=== PATIENT | male | born 2000 | race Caucasian/White ===

== ENCOUNTER 2019-02-17 07:41 | Outpatient (CLI) | payer MEDICAID, SELFPAY ==
[2019-02-17 09:25] LABS: ALT 24 U/L (12-78); AST 24 U/L (15-37); Albumin 4.2 g/dL (3.4-5.0); Alkaline Phosphatase 94 U/L (46-116); Anion Gap 8.4 mmol/L (3-11); BUN 22 mg/dL (7-18); Bilirubin, Total 0.6 mg/dL (0.2-1.0); CO2 28.6 mmol/L (21.0-32.0); CREATININE 0.91 mg/dL (0.70-1.30); Calcium 9.2 mg/dL (8.5-10.1); Chloride 103 mmol/L (98-107); Cholesterol 210 mg/dL (50-200); Glucose 86 mg/dL (70-100); HDL Cholesterol 55 mg/dL (40-60); LDL CHOLESTEROL 125 mg/dL (<100); Potassium 4.5 mmol/L (3.5-5.1); Sodium 140 mmol/L (136-145); Total Protein 7.6 g/dL (6.4-8.2); Triglyceride 133 mg/dL (30-150)
== END 2019-02-17 08:01 ==
PROVIDERS: PCP Nurse Practitioner Family; Visit Provider Nurse Practitioner Family
DX: F20.9 Schizophrenia, unspecified (principal); Z79.899 Other long term (current) drug therapy
CPT/HCPCS: 36415; 80053; 80061; 83721

== ENCOUNTER 2019-03-15 07:43 | Emergency (ER) | payer MEDICAID, SELFPAY ==
[2019-03-15] MEDS: Ibuprofen 800 MG TAB PO (07:45)
[2019-03-15 07:48] VITALS: BP 126/68; PULSE 79; RESP 16; TEMP 37; O2SAT 96
[2019-03-15] MEDS: Acetaminophen 500 MG TAB 1000 MG PO (07:50)
--- NOTE | 2019-03-15 07:50 | DI.RAD_ITS ---
SYMPTOM/DIAGNOSIS: FELL, SPRAIN, PAIN LEFT ANKLE: Three views were obtained. The ankle mortise appears well maintained. No fracture is seen.
--- NOTE | 2019-03-15 07:55 | ED.GENADUL_ITS ---
Discharge Plan Disposition Condition: Good Discharge Details Chief Complaint: Orthopedic Clinical Impression: Left ankle sprain Primary Care Provider: Roslyn Velasco ED Provider: Vernon Martin Home Meds and New Rx's Prescriptions: No Action paroxetine HCl [Paxil] 20 MG tablet 20 mg PO DAILY RF: 0 benztropine 0.5 mg Tablet 0.5 mg PO DAILY RF: 0 risperidone [Risperdal] 1 mg Tablet 1 mg PO DAILY RF: 0 Discharge Instructions Instructions: Ankle Sprain (ED) Additional Instructions: No large fracture is seen on your x-ray. Please use the splint as directed. Please take Tylenol, Motrin and use ice frequently as needed for the pain. If your symptoms do not improve with conservative management in the next 1-2 weeks may require further evaluation by an inbound ingredient logistics specialist or your family doctor peer if you notice any worsening of your symptoms, or any new symptoms such as vomiting, diarrhea, fever, chills, shortness of breath, chest pain, numbness, weakness, or fainting , please return immediately to the emergency department for reevaluation. Please follow up with your primary care provider as soon as possible for reassessment and reevaluation. As always, it was a pleasure participating in your medical care today. Referrals: Roslyn Velasco, KARI [Primary Care Provider] - Medical Decision Making This is a 18-year-old male who presents for his signs and symptoms concerning for an ankle sprain. Last night he was walking, and stepped on a dumbbell bar, leading to the inversion of his ankle with subsequent pain in the lateral aspect. Exam demonstrates reproducible mild tenderness at the distal aspect of the lateral malleoli, mild swelling and effusion there. He is able to ambulate with a mild limp. Neurovascular exam is otherwise intact, range of motion is normal, strength is normal for all movement of the ankle. We will give NSAIDs, and get an x-ray to evaluate for acute fracture. We will put the patient in a ankle splint. 8:16 AM X-ray reveals no significant fracture of the distal tibia or fibula, ankle mortise and joint space appears intact. Questionable small avulsion of the distal aspect of the fibula. Not of severe clinical significance. Patient's pain is well controlled. No evidence of ankle instability. We will give a splint, crutches, and recommend continued RICE. I have extensively reviewed the treatment plan and discharge instructions with the patient and their family. I have addressed all patient concerns at this time. The patient and family was made aware of what symptoms to monitor for that would warrant a return to the emergency department. Discussed the plan with the patient and family, they demonstrate verbal understanding and agreement with our assessment and plan at this time. HPI General Date/Time Provider Initiated Documentation: 03/15/19 07:47 . HPI Narrative: This is a 18-year-old male who presents for evaluation of left ankle sprain. Patient states that last night he was walking and stepped on a weight lifting dumbbell bar, leading to inversion of his ankle. He did hear a pop. He has had pain with ambulation since then. Pain is located on the lateral aspect of his ankle. Worse with movement, improved by nothing. He is taken no NSAIDs. He denies any numbness tingling or weakness or any other modifying factors. He denies any previous orthopedic surgeries. He denies any IV or illicit drug use or pertinent family history. Related Data Home Medications Medication Instructions Recorded Confirmed paroxetine HCl [Paxil] 20 mg PO DAILY tab-cap 07/15/18 03/15/19 benztropine 0.5 mg PO DAILY 03/15/19 03/15/19 risperidone [Risperdal] 1 mg PO DAILY 03/15/19 03/15/19 Allergies Allergy/AdvReac Type Severity Reaction Status Date / Time No Known Allergies Allergy Unverified 03/15/19 07:51 General Stated Complaint: Orthopedic BARBARA: 4 Review of Systems Review of Systems All systems reviewed & are unremarkable except as noted in HPI and below PFSH Medical History Mental health disorder Surgical History Appendectomy Family History Father Essential hypertension Heart disease Myocardial infarction Grandfather Diabetes Essential hypertension Heart disease Hyperlipidemia Myocardial infarction Grandmother Essential hypertension Hyperlipidemia Mother Mental disorder Paternal Aunt Alcohol abuse Brother No problems noted. Brother No problems noted. Sister No problems noted. Social History Smoking/Tobacco Use Status: Never Do you feel safe in your relationship?: Yes Exam Narrative Exam Narrative: 1.Const: Well-nourished, Well-developed, appearing stated age 2.Eyes: PERRL, no conjunctival injection, and symmetrical lids. 3.ENT: Atraumatic external nose and ears. Moist MM. Neck: Symmetric, trachea midline, No thyromegaly. 4.CVS: +S1/S2, No murmurs or gallops. Peripheral pulses 2+ and equal in all extremities. Brisk capillary refill in all extremities. 5.RESP: Unlabored respiratory effort. Clear to auscultation bilaterally. No wheezes rales or rhonchi 6.GI: Soft, Nontender/Nondistended, No hepatosplenomegaly. No guarding or rebound. 7.MSK: Normocephalic/Atraumatic, Extremities w/o deformity. No cyanosis or clubbing, Normal movement of all extremities. Left ankle demonstrates normal strength for plantar flexion dorsiflexion, eversion and inversion. Minimal swelling at the base of the lateral malleoli, reproducible tenderness in that area, including the ATF location. Mild effusion. Dorsalis pedis and posterior tibial +2, capillary refill brisk, sensation intact throughout. Normal movement of all toes. No evidence of pain in the medina, or knee. Normal range of motion for all extremities otherwise. 8.Skin: Warm, Dry. No rashes or lesions. 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 Sensation grossly intact, no focal neurologic deficits. 10.Psych: (AAO) x3. Appropriate mood and affect Course Vital Signs Temperature 37 C 03/15/19 07:48 Pulse 79 03/15/19 07:48 Respiratory Rate 16 03/15/19 07:48 Blood Pressure 126/68 03/15/19 07:48 Pulse Oximetry 96 03/15/19 07:48 Temperature 37 C 03/15/19 07:48 Temperature Source Skin 03/15/19 07:48 Pulse 79 03/15/19 07:48 Respiratory Rate 16 03/15/19 07:48 Respiratory Effort Non-Labored 03/15/19 07:48 Blood Pressure 126/68 03/15/19 07:48 Blood Pressure Position Supine 03/15/19 07:48 Pulse Oximetry 96 03/15/19 07:48 Oxygen Delivery Method Room Air 03/15/19 07:48 Oxygen Flow Rate 0 03/15/19 07:48 Pain Level 0 03/15/19 07:48
== END 2019-03-15 08:50 ==
PROVIDERS: Emergency Provider Student in an Organized Health Care Education/Training Program; PCP Nurse Practitioner Family
DX: S93.402A Sprain of unspecified ligament of left ankle, initial encounter (principal); X50.9XXA Other and unspecified overexertion or strenuous movements or postures, initial encounter
CPT/HCPCS: 29515; 99283; 73610; E0114; L1902

== ENCOUNTER 2019-09-22 07:34 | Outpatient (CLI) | payer MEDICAID, SELFPAY ==
[2019-09-22 09:09] LABS: ALT 32 U/L (16-63); AST 20 U/L (15-37); Albumin 4.3 g/dL (3.4-5.0); Alkaline Phosphatase 112 U/L (46-116); Anion Gap 8.3 mmol/L (3-11); BUN 21 mg/dL (7-18); Bilirubin, Total 0.7 mg/dL (0.2-1.0); CO2 28.7 mmol/L (21.0-32.0); CREATININE 0.95 mg/dL (0.70-1.30); Calcium 8.9 mg/dL (8.5-10.1); Calculated LDL 142 mg/dL; Chloride 104 mmol/L (98-107); Cholesterol 215 mg/dL (50-200); Glucose 96 mg/dL (70-100); HDL Cholesterol 47 mg/dL (40-60); Potassium 4.3 mmol/L (3.5-5.1); Sodium 141 mmol/L (136-145); TSH 1.48 uIU/mL (0.36-3.74); Total Protein 7.8 g/dL (6.4-8.2); Triglyceride 133 mg/dL (30-150)
[2019-09-24 15:46] LABS: 25-Hydroxy D Total 28 ng/mL; 25-Hydroxy D2 <4.0 ng/mL; 25-Hydroxy D3 28 ng/mL
== END 2019-09-22 07:54 ==
PROVIDERS: PCP Nurse Practitioner Family; Visit Provider Nurse Practitioner Family
DX: F20.9 Schizophrenia, unspecified (principal); Z79.899 Other long term (current) drug therapy; E55.9 Vitamin D deficiency, unspecified; R63.5 Abnormal weight gain
CPT/HCPCS: 36415; 80053; 80061; 82306; 84443

== ENCOUNTER 2020-06-30 10:51 | Day surgery (SDC) | payer MEDICAID, SELFPAY ==
--- NOTE | 2020-06-28 11:37 | DSU.FORM ---
Surgical office called Patient need prep script called to [facility]. Spoke with Daniella 06/28/20
[2020-06-30 11:10] VITALS: BP 122/80; PULSE 83; RESP 18; TEMP 37; O2SAT 96
[2020-06-30] MEDS: Lactated Ringers 1,000 ML 80 ML IV (11:56)
--- NOTE | 2020-06-30 12:02 | NUR.NOTE ---
Nursing Note: Pt. had one bout of small clear emesis during IV access. Pt. stated he was 'fine', looked away; RN proceeded. Pt. then became pale, clammy, with eyes rolling back into his head. RN stopped procedure, withdrawing IV, holding pressure. RN paged for assistance. Pt. had emesis and was assisted into bed in supine position. Anesthesia made aware. Anesthesia proceeded with IV access successfully.
--- NOTE | 2020-06-30 12:38 | W.PM.DSUDISC ---
Discharge Plan Disposition Patient Disposition: HOME Condition: Good Discharge Details Reason For Visit: Colonoscopy Attending Provider: Trisha Carreon Primary Care Provider: Roslyn Velasco Home Meds and New Rx's Prescriptions: Continued aripiprazole [Abilify] 5 mg tablet 5 mg PO HS RF: 0 hydroxyzine HCl 25 mg tablet 25 mg PO BID PRNRF: 0 Discontinued bisacodyl [Dulcolax (bisacodyl)] 5 mg tablet,delayed release (DR/EC) 5 mg PO ONCE Qty: 4 RF: 0 polyethylene glycol 3350 17 gram/dose powder 17 g PO ONCE Qty: 238 RF: 0 Discharge Instructions Additional Instructions: Findings: Your colonoscopy was normal. Internal hemorrhoids are present, which are the source of bleeding. Make sure to take in 30 grams of fiber daily to help avoid constipation and diarrhea which can worsen hemorrhoids. Benefiber is a good option for a fiber supplement. Follow up: None needed at this time. Please call if you develop: fevers >101.5 Nausea or Vomiting Abdominal pain that is not transient DAY SURGERY UNIT POST COLONOSCOPY INSTRUCTIONS 1. Because there will be medication in your system for the next 24 hours, you may feel a little sleepy. Your coordination will be affected. Therefore: a. Do not drive or operate dangerous equipment for 24 hours. b. Do not drink alcohol beverages for 24 hours (not even beer). c. Plan to go home and rest for the day. 2. Generally there are no restrictions on your activity after a day or so has gone by, but you may feel a bit fatigued for a few days. 3 After you arrive home you may have a light meal and return to a normal diet as you can tolerate it without feeling sick to your stomach. 4. After surgery, you may feel pain or discomfort. This should be only transient, but if it persists please contact your doctor. 5. If there are any questions regarding the findings of your procedure, please feel free to contact your doctor. 6. If you are unable to contact your doctor with a problem, contact the hospital at [phone]. 7. Continue all your regular medications unless directed otherwise. I understand the above instructions and have no questions. Signature of Patient or Responsible Adult Escort Date/Time Name of Responsible Adult Escort Signature of Nurse Date/Time Activity:: Activity as Tolerated Diet:: As Tolerated Discharge Orders Discharge Orders: Discharge Order (Routine); Ordered 06/30/20 Ordered By: Trisha Carreon DS: Diagnosis Discharge Diagnosis (1) Rectal bleeding: Status: Acute
--- NOTE | 2020-06-30 13:26 | W.COLOREPORT ---
Date of service: 06/30/20 Time of Service: 13:26 Colonoscopy Report Date of procedure: 06/30/20 Pre-op diagnosis general: Rectal bleeding Post-op diagnosis procedure note: other (Normal colon, internal hemorrhoids) Procedure: Colonoscopy Surgeon: Trisha Carreon Anesthesia proc note operative: MAC Indications: This patient complains of bright red blood on the toilet paper several times a week. He has alternating diarrhea and constipation. His grandmother had colon cancer. Procedure Description: The patient was placed in the left Zambrano position. Propofol was titrated to sedation. Digital rectal examination revealed no abnormalities. The scope was advanced to the cecum without difficulty. The ileocecal valve and appendiceal orifice were clearly identified. The prep was good. The scope was slowly withdrawn over the course of greater than 6 minutes with no abnormalities seen in the ascending, transverse, descending, sigmoid colon or rectum. Retroflexed view showed moderately prominent internal hemorrhoids. The patient tolerated the procedure well and was stable to recovery. Plan for routine screening colonoscopy per guidelines. He can take a fiber supplement to improve the diarrhea/constipation.
[2020-06-30 13:42] VITALS: BP 123/68
== END 2020-06-30 14:05 | disposition home or self-care (01) ==
PROVIDERS: PCP Nurse Practitioner Family; Visit Provider Surgery
PROC: 0DJD8ZZ Inspection of Lower Intestinal Tract, Via Natural or Artificial Opening Endoscopic (ICD-10-PCS; CPT 45378; principal; 2020-06-30 13:00)
DX: K62.5 Hemorrhage of anus and rectum (principal); R19.8 Other specified symptoms and signs involving the digestive system and abdomen; Z80.0 Family history of malignant neoplasm of digestive organs; K64.8 Other hemorrhoids
CPT/HCPCS: 45378

== ENCOUNTER 2020-10-24 04:14 | Outpatient (CLI) | payer MEDICAID, SELFPAY ==
[2020-10-24 12:21] LABS: Abs Immature Grans 0.05 10^3/uL (0.0-0.06); Absolute Basophil Count 0.03 10^3/uL (0.0-0.2); Absolute Eosinophil Count 0.27 10^3/uL (0.0-0.7); Absolute Lymphocyte Count 3.73 10^3/uL (1.2-3.4); Absolute Monocyte Count 0.94 10^3/uL (0.1-0.8); Absolute Neutrophil Count 6.41 10^3/uL (1.2-6.7); Basophils % 0.3; Eosinophils % 2.4; HCT 44.7 % (40.0-50.0); HGB 15.5 g/dL (13.5-17.5); Immature Grans % 0.4; Lymphocytes % 32.6; MCHC 34.7 % (32.0-36.0); MCV 89.4 fL (80-95); MPV 10.2 fL (8.0-11.0); Monocytes % 8.2; Neutrophils % 56.1; Nucleated RBC 0 %; Platelet Count 331 10^3/uL (130-400); RDW-SD 39.2 fL; WBC 11.43 10^3/uL (4.4-10.8)
[2020-10-24 13:23] LABS: ALT 30 U/L (16-63); AST 18 U/L (15-37); Albumin 4.2 g/dL (3.4-5.0); Alkaline Phosphatase 106 U/L (46-116); Anion Gap 8.9 mmol/L (3-11); BUN 18 mg/dL (7-18); Bilirubin, Total 0.8 mg/dL (0.2-1.0); CO2 27.1 mmol/L (21.0-32.0); CREATININE 0.99 mg/dL (0.70-1.30); Calcium 9.1 mg/dL (8.5-10.1); Calculated LDL 128 mg/dL (<100); Chloride 105 mmol/L (98-107); Cholesterol 200 mg/dL (<200); Glucose 89 mg/dL (74-106); HDL Cholesterol 55 mg/dL (40-60); Potassium 3.7 mmol/L (3.5-5.1); Sodium 141 mmol/L (136-145); TSH (W/Ref FT4) 1.35 uIU/mL (0.36-3.74); Total Protein 7.5 g/dL (6.4-8.2); Triglyceride 88 mg/dL (<150)
[2020-10-25 16:08] LABS: HIV-1/2 Ag & Ab Screen Negative (Negative)
[2020-10-30 15:25] LABS: Hepatitis C Ab w Rflx HCV PCR Negative (Negative)
== END 2020-10-24 04:34 ==
PROVIDERS: PCP Nurse Practitioner Family; Visit Provider Nurse Practitioner Family
DX: R63.5 Abnormal weight gain (principal); E66.9 Obesity, unspecified; Z13.220 Encounter for screening for lipoid disorders; Z11.4 Encounter for screening for human immunodeficiency virus [HIV]; Z11.59 Encounter for screening for other viral diseases; Z51.81 Encounter for therapeutic drug level monitoring
CPT/HCPCS: 36415; 80053; 80061; 86803; 87389; 83036; 84443; 85025

== ENCOUNTER 2023-05-08 03:11 | Outpatient (CLI) | payer MEDICAID, SELFPAY ==
[2023-05-08 12:22] LABS: Abs Immature Grans 0.06 10^3/uL (0.0-0.06); Absolute Basophil Count 0.04 10^3/uL (0.0-0.2); Absolute Monocyte Count 1.28 10^3/uL (0.1-0.8); Basophils % 0.3; Eosinophils % 2.5; HCT 37.8 % (40.0-50.0); HGB 11.3 g/dL (13.5-17.5); Immature Grans % 0.5; Lymphocytes % 28.5; MCH 24.6 pg (27.0-33.0); MCHC 29.9 % (32.0-36.0); MCV 82 fL (80-95); MPV 11.2 fL (8.0-11.0); Monocytes % 10.6; Neutrophils % 57.6; Platelet Count 429 10^3/uL (130-400); RDW 15.4 % (11.8-14.1); RDW-SD 46.2 fL; WBC 12.05 10^3/uL (4.4-10.8)
[2023-05-08 12:23] LABS: Absolute Lymphocyte Count 3.43 10^3/uL (1.2-3.4); Absolute Neutrophil Count 6.94 10^3/uL (1.2-6.7)
[2023-05-08 12:38] LABS: ALT 31 U/L (16-63); AST 21 U/L (15-37); Albumin 4.3 g/dL (3.4-5.0); Alkaline Phosphatase 119 U/L (46-116); Anion Gap 12.2 mmol/L (3-11); BUN 15 mg/dL (7-18); Bilirubin, Total 0.4 mg/dL (0.2-1.0); CO2 22.8 mmol/L (21.0-32.0); Calculated LDL 111 mg/dL (<100); Chloride 108 mmol/L (98-107); Cholesterol 166 mg/dL (<200); Estimated GFR 107.78 (mL/min/1.73m2); Glucose 107 mg/dL (74-106); HDL Cholesterol 44 mg/dL (40-60); Potassium 4.1 mmol/L (3.5-5.1); Sodium 143 mmol/L (136-145); Total Protein 7.9 g/dL (6.4-8.2); Triglyceride 58 mg/dL (<150)
[2023-05-08 12:39] LABS: Hemoglobin A1C 5.1 % (<5.7)
== END 2023-05-08 03:12 | disposition home or self-care (01) ==
LOC: LOS 03:12
PROVIDERS: Visit Provider Nurse Practitioner Family
DX: E78.5 Hyperlipidemia, unspecified (principal); F41.1 Generalized anxiety disorder; E66.8 Other obesity; R73.09 Other abnormal glucose
CPT/HCPCS: 36415; 80053; 80061; 83036; 85025

== ENCOUNTER 2023-09-19 02:17 | Outpatient (CLI) | payer MEDICAID, SELFPAY ==
[2023-09-19 08:07] LABS: ALT 24 U/L (16-63); AST 13 U/L (15-37); Albumin 3.8 g/dL (3.4-5.0); Alkaline Phosphatase 120 U/L (46-116); BUN 16 mg/dL (7-18); Bilirubin, Total 0.3 mg/dL (0.2-1.0); Calcium 9.2 mg/dL (8.5-10.1); Calculated LDL 98 mg/dL (<100); Chloride 107 mmol/L (98-107); Cholesterol 169 mg/dL (<200); Estimated GFR 107.12 (mL/min/1.73m2); Glucose 104 mg/dL (74-106); HDL Cholesterol 45 mg/dL (40-60); Sodium 144 mmol/L (136-145); Total Protein 7.5 g/dL (6.4-8.2); Triglyceride 133 mg/dL (<150)
== END 2023-09-19 02:18 | disposition home or self-care (01) ==
PROVIDERS: Visit Provider Nurse Practitioner Family
DX: F33.9 Major depressive disorder, recurrent, unspecified (principal); R63.5 Abnormal weight gain; Z51.81 Encounter for therapeutic drug level monitoring
CPT/HCPCS: 36415; 80053; 80061; 84443

== ENCOUNTER 2023-11-05 14:50 | Outpatient (REF) | payer MEDICAID, SELFPAY ==
[2023-11-05 21:58] LABS: Abs Immature Grans 0.04 10^3/uL (0.0-0.06); Absolute Basophil Count 0.06 10^3/uL (0.0-0.2); Absolute Eosinophil Count 0.35 10^3/uL (0.0-0.7); Absolute Lymphocyte Count 3.52 10^3/uL (1.2-3.4); Absolute Monocyte Count 0.87 10^3/uL (0.1-0.8); Absolute Neutrophil Count 5.09 10^3/uL (1.2-6.7); Basophils % 0.6; Eosinophils % 3.5; HCT 38.2 % (40.0-50.0); HGB 12.7 g/dL (13.5-17.5); Immature Grans % 0.4; Lymphocytes % 35.4; MCHC 33.2 % (32.0-36.0); MCV 90 fL (80-95); MPV 12.3 fL (8.0-11.0); Monocytes % 8.8; Neutrophils % 51.3; Platelet Count 317 10^3/uL (130-400); RBC 4.23 10^6/uL (4.36-5.78); RDW 14.5 % (11.8-14.1); RDW-SD 47.9 fL; WBC 9.93 10^3/uL (4.4-10.8)
[2023-11-05 22:32] LABS: ALT 32 U/L (16-63); AST 25 U/L (15-37); Albumin 4.3 g/dL (3.4-5.0); Alkaline Phosphatase 119 U/L (46-116); Anion Gap 13.1 mmol/L (3-11); BUN 17 mg/dL (7-18); Bilirubin, Total 0.2 mg/dL (0.2-1.0); CO2 23.9 mmol/L (21.0-32.0); Calcium 9.2 mg/dL (8.5-10.1); Calculated LDL 121 mg/dL (<100); Chloride 107 mmol/L (98-107); Cholesterol 222 mg/dL (<200); Estimated GFR 107.12 (mL/min/1.73m2); Glucose 120 mg/dL (74-106); HDL Cholesterol 56 mg/dL (40-60); Potassium 4.2 mmol/L (3.5-5.1); Sodium 144 mmol/L (136-145); Total Protein 7.5 g/dL (6.4-8.2); Triglyceride 225 mg/dL (<150); Vitamin B12 298 pg/mL (193-986)
[2023-11-05 22:44] LABS: Iron 47 ug/dL (65-175); Total Iron Binding Capacity 415 ug/dL (250-450); Transferrin Sat 11 % (20-55)
[2023-11-11 10:01] LABS: Methylmalonic Acid 0.18 nmol/mL (<=0.40)
== END 2023-11-05 14:51 | disposition home or self-care (01) ==
LOC: NCHCN 14:50
PROVIDERS: Visit Provider Family Medicine
DX: D50.9 Iron deficiency anemia, unspecified (principal); F20.0 Paranoid schizophrenia
CPT/HCPCS: 80053; 80061; 80186; 82607; 83540; 83550; 85025

== ENCOUNTER 2024-05-17 21:35 | Outpatient (REF) | payer MEDICAID, SELFPAY ==
[2024-05-17 21:35] LABS: Abs Immature Grans 0.01 10^3/uL (0.0-0.06); Absolute Basophil Count 0.05 10^3/uL (0.0-0.2); Absolute Eosinophil Count 0.37 10^3/uL (0.0-0.7); Absolute Lymphocyte Count 3.09 10^3/uL (1.2-3.4); Absolute Monocyte Count 0.68 10^3/uL (0.1-0.8); Absolute Neutrophil Count 3.14 10^3/uL (1.2-6.7); Basophils % 0.7 %; HCT 30.2 % (40.0-50.0); HGB 9.1 g/dL (13.5-17.5); Immature Grans % 0.1 %; Lymphocytes % 42.1 %; MCH 24.3 pg (27.0-33.0); MCHC 30.1 % (32.0-36.0); MCV 81 fL (80-95); MPV 11.1 fL (8.0-11.0); Monocytes % 9.3 %; Neutrophils % 42.8 %; Platelet Count 368 10^3/uL (130-400); RBC 3.75 10^6/uL (4.36-5.78); RDW 14.6 % (11.8-14.1); RDW-SD 42.9 fL; WBC 7.34 10^3/uL (4.4-10.8)
[2024-05-17 22:10] LABS: Ferritin 9 ng/mL (26-388)
[2024-05-17 22:38] LABS: Iron 278 ug/dL (65-175); Total Iron Binding Capacity 466 ug/dL (250-450); Transferrin Sat 60 % (20-55)
== END 2024-05-17 21:36 | disposition home or self-care (01) ==
LOC: NCHCN 21:35
PROVIDERS: PCP Family Medicine; Visit Provider Family Medicine
DX: D50.8 Other iron deficiency anemias (principal)
CPT/HCPCS: 82728; 83540; 83550; 85025

== ENCOUNTER 2024-06-02 12:47 | Outpatient (REF) | payer MEDICAID, SELFPAY ==
[2024-06-02 15:10] LABS: Iron 18 ug/dL (65-175); Total Iron Binding Capacity 437 ug/dL (250-450); Transferrin Sat 4 % (20-55)
[2024-06-02 15:38] LABS: ALT 24 U/L (16-63); AST 16 U/L (15-37); Albumin 4.3 g/dL (3.4-5.0); Alkaline Phosphatase 106 U/L (46-116); Anion Gap 9.7 mmol/L (3-11); BUN 13 mg/dL (7-18); Bilirubin, Total 0.24 mg/dL (0.2-1.0); CO2 27.3 mmol/L (21.0-32.0); Calcium 9.4 mg/dL (8.5-10.1); Chloride 109 mmol/L (98-107); Estimated GFR 106.45 (mL/min/1.73m2); Ferritin 50 ng/mL (26-388); Glucose 97 mg/dL (74-106); Potassium 4.6 mmol/L (3.5-5.1); Sodium 146 mmol/L (136-145); TSH (W/Ref FT4) 2.09 uIU/mL (0.36-3.74); Total Protein 7.4 g/dL (6.4-8.2)
[2024-06-02 16:04] LABS: LDH 179 U/L (85-227)
[2024-06-02 17:10] LABS: Reticulocyte 1.5 % (0.5-2.4)
[2024-06-02 17:17] LABS: Abs Immature Grans 0.02 10^3/uL (0.0-0.06); Absolute Basophil Count 0.06 10^3/uL (0.0-0.2); Absolute Eosinophil Count 0.48 10^3/uL (0.0-0.7); Absolute Lymphocyte Count 2.49 10^3/uL (1.2-3.4); Absolute Monocyte Count 0.85 10^3/uL (0.1-0.8); Absolute Neutrophil Count 4.19 10^3/uL (1.2-6.7); Basophils % 0.7 %; Eosinophils % 5.9 %; HCT 38.2 % (40.0-50.0); Immature Grans % 0.2 %; Lymphocytes % 30.8 %; MCH 24.4 pg (27.0-33.0); MCHC 28.8 % (32.0-36.0); MCV 85 fL (80-95); MPV 11.3 fL (8.0-11.0); Monocytes % 10.5 %; Neutrophils % 51.9 %; Platelet Count 313 10^3/uL (130-400); RDW 17.1 % (11.8-14.1); RDW-SD 53.1 fL; WBC 8.09 10^3/uL (4.4-10.8)
[2024-06-02 19:46] LABS: Anisocytosis 1+; Diff Comment RBC Morph Reviewed; Hypochromasia 1+
[2024-06-03 09:01] LABS: Haptoglobin 145 mg/dL (32-197)
[2024-06-07 16:47] LABS: Hemoglobinopathy Interpretat (See Note)
== END 2024-06-02 12:48 | disposition home or self-care (01) ==
LOC: NCHCN 12:47
PROVIDERS: PCP Family Medicine; Visit Provider Family Medicine
DX: D64.9 Anemia, unspecified (principal)
CPT/HCPCS: 80053; 82728; 83010; 83020; 83540; 83550; 83615; 84443; 85025; 85045

== ENCOUNTER 2024-11-16 14:50 | Outpatient (REF) | payer MEDICAID, SELFPAY ==
[2024-11-16 15:58] LABS: Abs Immature Grans 0.19 10^3/uL (0.0-0.06); Absolute Basophil Count 0.05 10^3/uL (0.0-0.2); Absolute Eosinophil Count 0.33 10^3/uL (0.0-0.7); Absolute Lymphocyte Count 2.93 10^3/uL (1.2-3.4); Absolute Monocyte Count 0.99 10^3/uL (0.1-0.8); Absolute Neutrophil Count 5.87 10^3/uL (1.2-6.7); Basophils % 0.5 %; Eosinophils % 3.2 %; HCT 35.4 % (40.0-50.0); HGB 11.5 g/dL (13.5-17.5); Immature Grans % 1.8 %; Lymphocytes % 28.3 %; MCH 30.5 pg (27.0-33.0); MCHC 32.5 % (32.0-36.0); MCV 94 fL (80-95); MPV 10.9 fL (8.0-11.0); Monocytes % 9.6 %; Neutrophils % 56.6 %; Platelet Count 335 10^3/uL (130-400); RBC 3.77 10^6/uL (4.36-5.78); RDW-SD 44.8 fL; WBC 10.36 10^3/uL (4.4-10.8)
[2024-11-16 16:59] LABS: Iron 19 ug/dL (65-175); Total Iron Binding Capacity 364 ug/dL (250-450); Transferrin Sat 5 % (20-55)
== END 2024-11-16 14:51 | disposition home or self-care (01) ==
LOC: NCHCN 14:50
PROVIDERS: PCP Family Medicine; Visit Provider Family Medicine
DX: K92.1 Melena (principal); D50.9 Iron deficiency anemia, unspecified
CPT/HCPCS: 83540; 83550; 85025; 86140

== ENCOUNTER 2024-12-02 01:40 | Outpatient (CLI) | payer MEDICAID, SELFPAY ==
--- NOTE | 2024-12-02 06:15 | DI.MRI_ITS ---
Exam(s) MR BRAIN WO EXAM: MR BRAIN WO CLINICAL HISTORY: headaches, memory changes,cognitive changes,R51.9,r41.89 TECHNIQUE: Multiplanar multisequence MRI of the brain was performed. COMPARISON: CT HEAD WITHOUT CONTRAST from 05/28/2018 FINDINGS: CEREBRAL PARENCHYMA: There is no evidence of intracranial hemorrhage, new mass effect, or shift of midline structures. Th ere are no extra-axial fluid collections. Ventricles are not enlarged or shifted. There is no significant focal signal abnormality in the cerebellar hemispheres nor within the risa, m idbrain, and thalami. There is no abnormal signal abnormality in the periventricular white matter. There is no significant focal signal abnormality evident on diffusion imaging to suggest acute ischem ic event. There is exaggerated CSF space posteriorly behind the left cerebellar hemisphere, unchanged from CT s can of 2017. This may represent a retro cerebellar arachnoid cyst measuring 2 cm AP by 2 cm wide by 2.5 cm craniocaudal. There is no obvious associated inner table erosion of the skull at this level. PITUITARY GLAND: No mass nor parasellar abnormality. No obvious abnormality in the cavernous sinuses. FLOW VOIDS: The expected flow void are noted. No evidence of obvious aneurysm nor obvious vascular ma lformation. PARANASAL SINUSES: The visualized paranasal sinuses appear unremarkable. No obvious finding ORBITS: No obvious findings. IMPRESSION: No significant acute intracranial findings on this noninfused MRI scan of the brain. 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 This is unchanged from CT scan of May 2018. DATA REPOSITORY:
== END 2024-12-02 02:00 ==
LOC: DI 01:40
PROVIDERS: PCP Family Medicine; Visit Provider Nurse Practitioner Adult Health
DX: R41.89 Other symptoms and signs involving cognitive functions and awareness (principal); R51.9 Headache, unspecified
CPT/HCPCS: 70551

== ENCOUNTER 2024-12-22 15:56 | Outpatient (CLI) | payer MEDICAID, SELFPAY ==
[2024-12-22 16:01] LABS: Abs Immature Grans 0.05 10^3/uL (0.0-0.06); Absolute Basophil Count 0.07 10^3/uL (0.0-0.2); Absolute Eosinophil Count 0.45 10^3/uL (0.0-0.7); Absolute Neutrophil Count 4.94 10^3/uL (1.2-6.7); Basophils % 0.7 %; Eosinophils % 4.7 %; HCT 39.8 % (40.0-50.0); HGB 12.9 g/dL (13.5-17.5); Immature Grans % 0.5 %; Lymphocytes % 33.3 %; MCH 30.2 pg (27.0-33.0); MCHC 32.4 % (32.0-36.0); MCV 93 fL (80-95); MPV 10.1 fL (8.0-11.0); Monocytes % 9.4 %; Neutrophils % 51.4 %; Platelet Count 285 10^3/uL (130-400); RBC 4.27 10^6/uL (4.36-5.78); RDW 13.7 % (11.8-14.1); WBC 9.61 10^3/uL (4.4-10.8)
[2024-12-22 16:29] LABS: Ferritin 30 ng/mL (26-388)
== END 2024-12-22 15:57 | disposition home or self-care (01) ==
LOC: LBO 15:58
PROVIDERS: PCP Family Medicine; Visit Provider Internal Medicine Hematology & Oncology
DX: D50.0 Iron deficiency anemia secondary to blood loss (chronic) (principal)
CPT/HCPCS: 36415; 82728; 85025

== ENCOUNTER 2025-01-31 12:44 | Outpatient (CLI) | payer MEDICAID, SELFPAY ==
[2025-01-31 12:33] LABS: Abs Immature Grans 0.03 10^3/uL (0.0-0.06); Absolute Basophil Count 0.05 10^3/uL (0.0-0.2); Absolute Eosinophil Count 0.28 10^3/uL (0.0-0.7); Absolute Lymphocyte Count 3.27 10^3/uL (1.2-3.4); Absolute Monocyte Count 0.88 10^3/uL (0.1-0.8); Absolute Neutrophil Count 4.88 10^3/uL (1.2-6.7); Basophils % 0.5 %; HCT 38.5 % (40.0-50.0); HGB 12.5 g/dL (13.5-17.5); Immature Grans % 0.3 %; Lymphocytes % 34.8 %; MCH 30.2 pg (27.0-33.0); MCHC 32.5 % (32.0-36.0); MCV 93 fL (80-95); MPV 10.1 fL (8.0-11.0); Monocytes % 9.4 %; Platelet Count 326 10^3/uL (130-400); RBC 4.14 10^6/uL (4.36-5.78); RDW 12.8 % (11.8-14.1); RDW-SD 43.9 fL; WBC 9.39 10^3/uL (4.4-10.8)
[2025-01-31 13:06] LABS: Ferritin 44 ng/mL (26-388)
[2025-01-31 13:26] LABS: Calculated LDL 85 mg/dL (<100); Cholesterol 185 mg/dL (<200); HDL Cholesterol 49 mg/dL (>or=40); TSH (W/Ref FT4) 2.56 uIU/mL (0.36-3.74); Triglyceride 256 mg/dL (<150)
== END 2025-01-31 12:45 | disposition home or self-care (01) ==
LOC: LBO 12:44
PROVIDERS: Internal Medicine Hematology & Oncology; PCP Family Medicine; Visit Provider Nurse Practitioner Family
DX: D50.0 Iron deficiency anemia secondary to blood loss (chronic) (principal); Z51.81 Encounter for therapeutic drug level monitoring
CPT/HCPCS: 36415; 80061; 82728; 84443; 85025

== ENCOUNTER 2025-03-23 03:17 | Outpatient (CLI) | payer MEDICAID, SELFPAY ==
[2025-03-23 08:02] LABS: Abs Immature Grans 0.04 10^3/uL (0.0-0.06); Absolute Basophil Count 0.03 10^3/uL (0.0-0.2); Absolute Eosinophil Count 0.42 10^3/uL (0.0-0.7); Absolute Lymphocyte Count 2.61 10^3/uL (1.2-3.4); Absolute Monocyte Count 0.95 10^3/uL (0.1-0.8); Absolute Neutrophil Count 5.36 10^3/uL (1.2-6.7); Basophils % 0.3 %; Eosinophils % 4.5 %; HCT 37.9 % (40.0-50.0); HGB 12.5 g/dL (13.5-17.5); Immature Grans % 0.4 %; Lymphocytes % 27.7 %; MCH 29.6 pg (27.0-33.0); MCV 90 fL (80-95); MPV 10.3 fL (8.0-11.0); Monocytes % 10.1 %; Platelet Count 318 10^3/uL (130-400); RBC 4.22 10^6/uL (4.36-5.78); RDW 13.1 % (11.8-14.1); RDW-SD 43.5 fL; WBC 9.41 10^3/uL (4.4-10.8)
[2025-03-23 09:23] LABS: Ferritin 43 ng/mL (26-388)
== END 2025-03-23 03:18 | disposition home or self-care (01) ==
PROVIDERS: PCP Family Medicine; Visit Provider Internal Medicine Hematology & Oncology
DX: D50.0 Iron deficiency anemia secondary to blood loss (chronic) (principal)
CPT/HCPCS: 36415; 82728; 85025

== ENCOUNTER 2025-05-18 03:16 | Outpatient (CLI) | payer MEDICAID, SELFPAY ==
[2025-05-18 07:58] LABS: Abs Immature Grans 0.02 10^3/uL (0.0-0.06); Absolute Basophil Count 0.05 10^3/uL (0.0-0.2); Absolute Eosinophil Count 0.37 10^3/uL (0.0-0.7); Absolute Monocyte Count 0.76 10^3/uL (0.1-0.8); Basophils % 0.6 %; Eosinophils % 4.3 %; HCT 37.6 % (40.0-50.0); HGB 12.5 g/dL (13.5-17.5); Immature Grans % 0.2 %; Lymphocytes % 30.2 %; MCH 29.3 pg (27.0-33.0); MCHC 33.2 % (32.0-36.0); MCV 88 fL (80-95); MPV 10.2 fL (8.0-11.0); Monocytes % 8.8 %; Neutrophils % 55.9 %; Platelet Count 259 10^3/uL (130-400); RBC 4.26 10^6/uL (4.36-5.78); RDW 13.5 % (11.8-14.1); RDW-SD 43.8 fL
[2025-05-18 08:25] LABS: Ferritin 43 ng/mL (26-388)
== END 2025-05-18 03:17 | disposition home or self-care (01) ==
LOC: LBO 03:16
PROVIDERS: PCP Family Medicine; Visit Provider Internal Medicine Hematology & Oncology
DX: D50.0 Iron deficiency anemia secondary to blood loss (chronic) (principal)
CPT/HCPCS: 36415; 82728; 85025

== ENCOUNTER 2025-07-13 13:20 | Outpatient (CLI) | payer MEDICAID, SELFPAY ==
[2025-07-13 09:09] LABS: Abs Immature Grans 0.03 10^3/uL (0.0-0.06); HCT 37.4 % (40.0-50.0); HGB 12.4 g/dL (13.5-17.5); Immature Grans % 0.4 %; MCH 30.0 pg (27.0-33.0); MCHC 33.2 % (32.0-36.0); MCV 90 fL (80-95); MPV 10.4 fL (8.0-11.0); Platelet Count 309 10^3/uL (130-400); RBC 4.14 10^6/uL (4.36-5.78); RDW 13.2 % (11.8-14.1); RDW-SD 43.6 fL; WBC 8.26 10^3/uL (4.4-10.8)
[2025-07-13 09:38] LABS: ALT 22 U/L (16-63); AST 14 U/L (15-37); Albumin 4.0 g/dL (3.4-5.0); Alkaline Phosphatase 114 U/L (46-116); Anion Gap 7.4 mmol/L (3-11); BUN 19 mg/dL (7-18); Bilirubin, Total 0.3 mg/dL (0.2-1.0); CO2 26.6 mmol/L (21.0-32.0); Calcium 8.7 mg/dL (8.5-10.1); Chloride 108 mmol/L (98-107); Estimated GFR 105.79 (mL/min/1.73m2); Ferritin 66 ng/mL (26-388); Glucose 94 mg/dL (74-106); Potassium 3.9 mmol/L (3.5-5.1); Sodium 142 mmol/L (136-145); Total Protein 7.2 g/dL (6.4-8.2)
== END 2025-07-13 13:21 | disposition home or self-care (01) ==
LOC: LBO 13:21
PROVIDERS: PCP Family Medicine; Visit Provider Nurse Practitioner Family
DX: D50.0 Iron deficiency anemia secondary to blood loss (chronic) (principal)
CPT/HCPCS: 36415; 80053; 82728; 85025

== ENCOUNTER 2025-09-06 08:11 | Outpatient (CLI) | payer MEDICAID, SELFPAY ==
[2025-09-06 08:27] LABS: Abs Immature Grans 0.06 10^3/uL (0.0-0.06); HCT 31.3 % (40.0-50.0); HGB 10.7 g/dL (13.5-17.5); Immature Grans % 0.6 %; MCH 31.1 pg (27.0-33.0); MCHC 34.2 % (32.0-36.0); MCV 91 fL (80-95); MPV 9.8 fL (8.0-11.0); Platelet Count 342 10^3/uL (130-400); RBC 3.44 10^6/uL (4.36-5.78); RDW 12.8 % (11.8-14.1); RDW-SD 41.5 fL; WBC 9.25 10^3/uL (4.4-10.8)
[2025-09-06 09:03] LABS: ALT 26 U/L (16-63); AST 15 U/L (15-37); Albumin 3.9 g/dL (3.4-5.0); Alkaline Phosphatase 114 U/L (46-116); Anion Gap 11.0 mmol/L (3-11); BUN 16 mg/dL (7-18); Bilirubin, Total 0.2 mg/dL (0.2-1.0); CO2 22.0 mmol/L (21.0-32.0); Calcium 8.3 mg/dL (8.5-10.1); Chloride 109 mmol/L (98-107); Estimated GFR 120.05 (mL/min/1.73m2); Ferritin 60 ng/mL (26-388); Glucose 95 mg/dL (74-106); Potassium 3.9 mmol/L (3.5-5.1); Sodium 142 mmol/L (136-145); Total Protein 7.0 g/dL (6.4-8.2)
== END 2025-09-06 08:12 | disposition home or self-care (01) ==
LOC: LBO 08:12
PROVIDERS: PCP Family Medicine; Visit Provider Nurse Practitioner Family
DX: D50.0 Iron deficiency anemia secondary to blood loss (chronic) (principal)
CPT/HCPCS: 36415; 80053; 82728; 85025

== ENCOUNTER 2025-11-02 01:28 | Outpatient (CLI) | payer MEDICAID, SELFPAY ==
[2025-11-02 13:04] LABS: Abs Immature Grans 0.04 10^3/uL (0.0-0.06); HCT 36.4 % (40.0-50.0); HGB 12.3 g/dL (13.5-17.5); Immature Grans % 0.4 %; MCH 29.1 pg (27.0-33.0); MCHC 33.8 % (32.0-36.0); MCV 86 fL (80-95); MPV 9.9 fL (8.0-11.0); Platelet Count 320 10^3/uL (130-400); RBC 4.22 10^6/uL (4.36-5.78); RDW 13.0 % (11.8-14.1); RDW-SD 40.9 fL; WBC 9.39 10^3/uL (4.4-10.8)
[2025-11-02 13:23] LABS: ALT 22 U/L (10-49); AST 20 U/L (<34); Albumin 4.5 g/dL (3.2-5.0); Alkaline Phosphatase 115 U/L (46-116); Anion Gap 9.2 mmol/L (3-11); BUN 17 mg/dL (9-23); Bilirubin, Total 0.20 mg/dL (0.2-1.2); CO2 21.8 mmol/L (20.0-31.0); Calcium 9.1 mg/dL (8.3-10.6); Chloride 112 mmol/L (98-107); Glucose 115 mg/dL (74-106); Potassium 3.7 mmol/L (3.5-5.1); Sodium 143 mmol/L (136-145); Total Protein 7.3 g/dL (5.7-8.2)
[2025-11-02 13:25] LABS: Ferritin 30 ng/mL (11-307)
== END 2025-11-02 01:29 | disposition home or self-care (01) ==
LOC: LBO 01:28
PROVIDERS: PCP Family Medicine; Visit Provider Nurse Practitioner Family
DX: D50.0 Iron deficiency anemia secondary to blood loss (chronic) (principal)
CPT/HCPCS: 36415; 80053; 82728; 85025